=== PATIENT | female | born 1990 | race Two or more races ===

== ENCOUNTER 2024-06-12 18:43 | Emergency (ER) | payer OTHER ==
[~2024-06-12] VITALS: Ht 154.9 cm; Wt 52.6 kg
[2024-06-12] MEDS ORDERED: METHYLPREDNISOLONE SOD SUCC 40 MG VIAL IM ONE (20:15)
[2024-06-12] MEDS ORDERED: LEVALBUTEROL HCL 1.25 MG/3 ML SOLUTION IH ONE (20:15)
[2024-06-12] MEDS ORDERED: CEFTRIAXONE SODIUM 1,000 MG VIAL IM ONE (20:15)
[2024-06-12] MEDS ORDERED: BENZONATATE 200 MG CAPSULE PO ONE (20:15)
[2024-06-12] MEDS ORDERED: METHYLPREDNISOLONE SOD SUCC 40 MG VIAL ONE (20:43)
[2024-06-12] MEDS ORDERED: CEFTRIAXONE SODIUM 1,000 MG VIAL ONE (20:43)
[2024-06-12 21:24] LABS: HEMATOCRIT 42.7 % (36.0-45.00); HEMOGLOBIN 14.3 g/dL (12.0-15.00); MEAN CELL VOLUME 88.8 fL (80.00-100.00); MEAN CORPUSCULAR HEMOGLOBIN 29.7 pg (27.00-32.0); MEAN CORPUSCULAR HGB CONC 33.5 g/dl (32.0-36.0); PLATELET COUNT 193 K/uL (150-450); RED BLOOD COUNT 4.81 M/uL (4.00-6.00); RED CELL DISTRIBUTION WIDTH 13.4 % (11.5-14.5)
[2024-06-12] MEDS ORDERED: BENZONATATE200 M1 PO (23:46)
[2024-06-12] MEDS ORDERED: SINGULAIR10 MG PO (23:46)
[2024-06-12] MEDS ORDERED: PEPCID AC20 MG PO (23:46)
[2024-06-12] MEDS ORDERED: AUGMENTIN XR 11 EACH PO (23:46)
[2024-06-12] MEDS ORDERED: MEDROLPACK PO (23:46)
[2024-06-12] MEDS ORDERED: LEVALBUTER0.63 MG/3 IH (23:46)
== END 2024-06-13 | disposition home or self-care (01) ==
LOC: ER 18:45
PROVIDERS: General Practice
DX: R05.8 Other specified cough (principal); J00 Acute nasopharyngitis [common cold]; R06.02 Shortness of breath; J18.9 Pneumonia, unspecified organism; Z20.822 Contact with and (suspected) exposure to COVID-19